=== PATIENT | female | born 1950 | race Caucasian/White ===

== ENCOUNTER 2020-08-26 13:47 | Outpatient (REF) | payer MEDICARE, BC, SELFPAY ==
[2020-08-26 14:00] LABS: TSH (W/Ref FT4) 1.89 uIU/mL (0.36-3.74)
== END 2020-08-26 14:07 ==
LOC: NCHCN 13:47
PROVIDERS: PCP Nurse Practitioner Community Health; Visit Provider Nurse Practitioner Community Health
DX: L65.9 Nonscarring hair loss, unspecified (principal)
CPT/HCPCS: 84443

== ENCOUNTER 2022-11-10 13:19 | Outpatient (REF) | payer MEDICARE, BC, SELFPAY ==
[2022-11-10 14:46] LABS: HCT 42.2 % (36.0-46.0); HGB 14.2 g/dL (11.2-15.7); MCH 31.7 pg (27.0-33.0); MCHC 33.6 % (32.0-36.0); MCV 94 fL (80-95); MPV 10.9 fL (8.0-11.0); Platelet Count 352 10^3/uL (130-400); RBC 4.48 10^6/uL (3.93-5.22); RDW 12.7 % (11.7-14.6); RDW-SD 44.3 fL; WBC 6.13 10^3/uL (4.4-10.8)
[2022-11-10 15:35] LABS: Calculated LDL 170 mg/dL (<100); Cholesterol 264 mg/dL (<200); HDL Cholesterol 46 mg/dL (40-60); Triglyceride 241 mg/dL (<150); Vitamin B12 954 pg/mL (193-986)
[2022-11-10 17:40] LABS: Vitamin D 25 Total 61.9 ng/mL (30-100)
== END 2022-11-10 13:20 | disposition home or self-care (01) ==
LOC: NCHCN 13:19
PROVIDERS: PCP Nurse Practitioner Community Health; Visit Provider Internal Medicine
DX: Z13.6 Encounter for screening for cardiovascular disorders (principal); M81.0 Age-related osteoporosis without current pathological fracture; D75.89 Other specified diseases of blood and blood-forming organs; M19.90 Unspecified osteoarthritis, unspecified site
CPT/HCPCS: 80061; 82306; 85027; 82607

== ENCOUNTER 2022-11-16 15:16 | Outpatient (REF) | payer MEDICARE, BC, SELFPAY ==
--- OUTSIDE RECORDS SUMMARY | 2022-11-16 15:22 | XMS_ITS | CCD ---
Author Name Unknown Address [address] [place] [address] [phone] Organization Unknown Address [address] [place] [address] [phone] Care Team Providers Care Assistant Health Educator Name Role Phone UNLISTED REQUESTED, PROVIDER - Attending Physici an 0 Vital Signs Unknown or Not Available. Allergies Allergy Code Allergy Type Reaction Status MORPHINE 7052 Drug allergy Vomiting Active OPIOID 0 Drug allergy Nausea; Vomiting Active GLUTEN 0 Food allergy Active DEMEROL 681041 Drug allergy Nausea; Vomiting Active WHEAT 0 Food allergy Active NICKEL 4850284 Drug allergy TUMOR Active COUMADIN 299713 Drug allergy Hives; SEVERE Active Procedures Unknown or Not Available. History of Immunizations Unknown or Not Available. Problems Unknown or Not Available. Results Unknown or Not Available. Active Medications Unknown or Not Available. Medications Administered During Visit Unknown or Not Available. Encounters Encounter Diagnosis Diagnosis Code Start Date Intervertebral disc disorder s with radiculopathy, lumbar region M5116 02/23/2022 Social History Smoking Status Code Start Date End Date Never smoker [id number] Patient Decision Aids Unknown or Not Available. Discharge Instructions You were admitted to [facility] on 02/23/2022 11:09 with a principal diagnosis of Intervertebral disc disorders with radiculopathy, lumbar region You were discharged from [facility] on 02/23/2022 11:09 Should you have any questions prior to discharge, please contact a member of your healthcare team. If you have left the hospital and have any questions, please contact your primary care physician. Chief Complaint and Reason For Visit Chief Complaint Date of Onset LBP, RT HIP PAIN Function Status Unknown or Not Available. Plan of Care Unknown or Not Available. Referral/Transition of Care Unknown or Not Available.
--- OUTSIDE RECORDS SUMMARY | 2022-11-16 15:22 | XMS_ITS | CCD ---
Author Name Unknown Address [address] [place] [address] [phone] Organization Unknown Address [address] [place] [address] [phone] Care Team Providers Care Timber Surveyor Name Role Phone MIMA KNOTT Attending Physician [phone] Vital Signs Unknown or Not Available. Allergies Allergy Code Allergy Type Reaction Status MORPHINE 7052 Drug allergy Vomiting Active OPIOID 0 Drug allergy Nausea; Vomiting Active GLUTEN 0 Food allergy Active DEMEROL 470284 Drug allergy Nausea; Vomiting Active WHEAT 0 Food allergy Active NICKEL 3723271 Drug allergy TUMOR Active COUMADIN 952620 Drug allergy Hives; SEVERE Active Procedures Unknown or Not Available. History of Immunizations Unknown or Not Available. Problems Unknown or Not Available. Results C REACTIVE PROTEIN HIGH SENS ITIVITY* - Collect Date/Time: 03/04/2022 12:27 Test Name Code Test Result Test Units Test Ref Rang e CRP-HIGH SENS. 98378-1 0.88 mg/L L=0.00 H=3 .00 CRP-HIGH SENS 15311-4 0.09 mg/dL L=0.00 H=0. 30 CBC W/ DIFFERENTIAL* - Colle ct Date/Time: 03/04/2022 12:27 Test Name Code Test Result Test Units Test Ref Rang e WBC 6690-2 5.66 th/cmm L=5.00 H=10.00 NEUT % 69.5 % L=40.0 H=80.0 LYMPH % 22.1 % L=10.0 H=50.0 MONO % 91289-7 6.0 % L=2.0 H=12.0 EOS % 1.1 % L=0.0 H=8.0 BASO % 1.1 % L=0.0 H=3.0 IG % 2514-8 0.2 % L=0.0 H=1.1 NRBC % 51555-6 0.0 % L=0.0 H=0.0 NEUT abs count 751-8 3.9 th/cmm L=1.6 H=8. 4 LYMPH abs count 731-0 1.3 th/cmm L=1.5 H=4 .0 MONO abs count 742-7 0.3 th/cmm L=0.2 H=1. 0 EOS abs count 711-2 0.1 th/cmm L=0.0 H=0.5 BASO abs count 704-7 0.1 th/cmm L=0.0 H=0. 2 IG abs count 87901-6 0.0 th/cmm L=0.0 H=0.1 NRBC abs count 57635-4 0.0 mil/cmm L=0.0 H=0. 0 RBC 789-8 4.50 mil/cmm L=3.90 H=5.40 HEMOGLOBIN 718-7 14.2 gm/dL L=12.0 H=16.0 HEMATOCRIT 4544-3 43 % L=37 H=47 MCV 787-2 96 fL L=82 H=92 MCH 785-6 31.6 pg L=27.0 H=31.0 MCHC 786-4 32.8 % L=32.0 H=36.0 RDW-SD 788-0 45.6 fL L=39.0 H=49.0 PLATELET COUNT 777-3 240 th/cmm L=150 H=45 0 SED RATE* - Collect Date/Rodo e: 03/04/2022 12:27 Test Name Code Test Result Test Units Test Ref Rang e SED. RATE 4537-7 17 mm/hr L=0 H=30 Active Medications Unknown or Not Available. Medications Administered During Visit Unknown or Not Available. Encounters Encounter Diagnosis Diagnosis Code Start Date Hip joint prosthesis present [id number] 09/2021 Social History Smoking Status Code Start Date End Date Never smoker [id number] Patient Decision Aids Unknown or Not Available. Discharge Instructions You were admitted to [facility] on 03/04/2022 11:54 with a principal diagnosis of Presence of left artificial hip joint You had the following tests done:C REACTIVE PROTEIN HIGH SENSITIVITY*CBC W/ DIFFERENTIAL*SED RATE* You were discharged from [facility] on 03/04/2022 11:54 Should you have any questions prior to discharge, please contact a member of your healthcare team. If you have left the hospital and have any questions, please contact your primary care physician. Chief Complaint and Reason For Visit Unknown or Not Available. Function Status Unknown or Not Available. Plan of Care Unknown or Not Available. Referral/Transition of Care Unknown or Not Available.
--- OUTSIDE RECORDS SUMMARY | 2022-11-16 15:22 | XMS_ITS | CCD ---
Author Name Unknown Address [address] [place] [address] [phone] Organization Unknown Address [address] [place] [address] [phone] Care Team Providers Care Nurse'S Aides Teacher Name Role Phone DANGELO JUANCHO Attending Physician [phone] Vital Signs Unknown or Not Available. Allergies Allergy Code Allergy Type Reaction Status MORPHINE 7052 Drug allergy Vomiting Active OPIOID 0 Drug allergy Nausea; Vomiting Active GLUTEN 0 Food allergy Active DEMEROL 659924 Drug allergy Nausea; Vomiting Active WHEAT 0 Food allergy Active NICKEL 2874541 Drug allergy TUMOR Active COUMADIN 629748 Drug allergy Hives; SEVERE Active Procedures Unknown or Not Available. History of Immunizations Unknown or Not Available. Problems Unknown or Not Available. Results CALCIUM URINE QUANT - Collec t Date/Time: 09/10/2021 08:00 Test Name Code Test Result Test Units Test Ref Rang e CALCIUM CONC. URINE 10 mg/dL TOTAL VOLUME 2025.0 mL HOURS COLLECTED 24 hours CALCIUM URINE 93717-5 203 mg/24 hr L=50 H=400 COLLECTION- TIMED N/A SARAH. STARTED 09/11/21 N/A CREATININE URINE 24 HOUR* - Collect Date/Time: 09/10/2021 08:00 Test Name Code Test Result Test Units Test Ref Rang e CREAT. CONC. URINE 29.5 mg/dL TOTAL VOLUME 2025.0 mL HOURS COLLECTED 24 hours CREATININE URINE 34887-0 0.60 gm/24 hr L=1.00 H =2.00 COLLECTION-- TIMED N/A SARAH. STARTED 09/11/21 N/A Active Medications Unknown or Not Available. Medications Administered During Visit Unknown or Not Available. Encounters Encounter Diagnosis Diagnosis Code Start Date Senile osteoporosis [id number] 09/12/2021 Social History Smoking Status Code Start Date End Date Never smoker [id number] Patient Decision Aids Unknown or Not Available. Discharge Instructions You were admitted to [facility] on 09/12/2021 13:19 with a principal diagnosis of Age-related osteoporosis without current pathological fracture You had the following tests done:CALCIUM URINE QUANTCREATININE URINE 24 HOUR* You were discharged from [facility] on 09/12/2021 13:19 Should you have any questions prior to [...]
--- OUTSIDE RECORDS SUMMARY | 2022-11-16 15:22 | XMS_ITS | CCD ---
Author Name Unknown Address [address] [place] [address] [phone] Organization Unknown Address [address] [place], [place] [phone] Care Team Providers Care Customer Associate Name Role Phone SHELBIJUANCHO ARMENDARIZ Attending Physician [phone] Vital Signs Unknown or Not Available. Allergies Allergy Code Allergy Type Reaction Status MORPHINE 7052 Drug allergy Vomiting Active OPIOID 0 Drug allergy Nausea; Vomiting Active GLUTEN 0 Food allergy Active DEMEROL 900884 Drug allergy Nausea; Vomiting Active WHEAT 0 Food allergy Active NICKEL 1193585 Drug allergy TUMOR Active COUMADIN 056518 Drug allergy Hives; SEVERE Active Procedures Unknown or Not Available. History of Immunizations Unknown or Not Available. Problems Unknown or Not Available. Results BASIC METABOLIC PANEL (BMP) - Collect Date/Time: 07/16/2021 10:33 Test Name Code Test Result Test Units Test Ref Rang e GLUCOSE 2345-7 96 mg/dL L=70 H=116 BUN 3094-0 16 mg/dL L=6 H=25 CREATININE 2160-0 0.68 mg/dL L=0.51 H=0.95 SODIUM SERUM 2951-2 137 mmol/L L=136 H=145 POTASSIUM SERUM 2823-3 4.2 mmol/L L=3.4 H=5 .2 CHLORIDE SERUM 2075-0 102 mmol/L L=96 H=110 CARBON DIOXIDE (CO2) 2028-9 31 mmol/L L=22 H=34 ANION GAP 26199-9 4.5 mmol/L CALCIUM SERUM 26748-9 9.5 mg/dL L=8.2 H=10. 2 AGE 70 years eGFR (non-Afr.Amer.) 62410-0 86 mL/min eGFR (Afr-Ivorian) 87512-9 104 mL/min Active Medications Unknown or Not Available. Medications Administered During Visit Unknown or Not Available. Encounters Encounter Diagnosis Diagnosis Code Start Date Senile osteoporosis [id number] 07/16/2021 Social History Smoking Status Code Start Date End Date Never smoker 440313324 Patient Decision Aids Unknown or Not Available. Discharge Instructions You were admitted to [facility] on 07/16/2021 10:13 with a principal diagnosis of Age-related osteoporosis without current pathological fracture You had the following tests done:BASIC METABOLIC PANEL (BMP) You were discharged from [facility] on 07/16/2021 10:13 Should you have any questions prior to [...]
--- OUTSIDE RECORDS SUMMARY | 2022-11-16 15:23 | XMS_ITS | CCD ---
Author Name Unknown Address [address] [place] [address] [phone] Organization Unknown Address [address] [place], [place] [phone] Care Team Providers Care Cafeteria Team Leader Name Role Phone JEFFREY HARLEY Erwin Attending Physician [phone] Vital Signs Unknown or Not Available. Allergies Allergy Code Allergy Type Reaction Status MORPHINE 7052 Drug allergy Vomiting Active OPIOID 0 Drug allergy Nausea; Vomiting Active GLUTEN 0 Food allergy Active DEMEROL 680891 Drug allergy Nausea; Vomiting Active WHEAT 0 Food allergy Active NICKEL 1282630 Drug allergy TUMOR Active COUMADIN 663220 Drug allergy Hives; SEVERE Active Procedures Unknown or Not Available. History of Immunizations Unknown or Not Available. Problems Unknown or Not Available. Results Unknown or Not Available. Active Medications Unknown or Not Available. Medications Administered During Visit Medication Dose Units Frequency Route Date/Time of Last Dose ZOLEDRONIC ACID IVPB: 5MG/100ML 5 MG X1 IVPB 10/20/2022 14:34 ACETAMINOPHEN TABLET: 325MG 650 MG X1 PO 10/20/2022 14:39 Encounters Encounter Diagnosis Diagnosis Code Start Date Age-related osteoporosis wit hout current pathological fracture M810 10/20/2022 Social History Smoking Status Code Start Date End Date Never smoker 646101037 Patient Decision Aids Unknown or Not Available. Discharge Instructions You were admitted to [facility] on 10/20/2022 12:52 with a principal diagnosis of Age-related osteoporosis without current pathological fracture You were discharged from [facility] on 10/20/2022 13:10 Should you have any questions prior to [...]
--- OUTSIDE RECORDS SUMMARY | 2022-11-16 15:23 | XMS_ITS | CCD ---
Author Name Unknown Address [address] [place] [address] [phone] Organization Unknown Address [address] [place], [place] [phone] Care Team Providers Care Systems Technologist Name Role Phone HERMINIO STOREY Attending Physician [phone] BELLA SARAH Er Physician [phone] LILLIE Howe Registered Nurse [phone] Vital Signs Vital Sign Value Unit Date/Time Recent/Initial ? BMI (Body Mass Index) 26.13 kg/m^2 07/02/2022 12: 47 Initial VS Weight Measured 133.82 lbs 07/02/2022 12:47 Ini tial VS Height 60 in 07/02/2022 12:47 Initial VS BSA (Body Surface Area) 1.6 m^2 07/02/2022 1 2:47 Initial VS BP Systolic 146 mmHg 07/02/2022 12:47 Initial VS BP Diastolic 80 mmHg 07/02/2022 12:47 Initia l VS Respiratory Rate 16 bpm 07/02/2022 12:47 In itial VS Heart Rate 99 bpm 07/02/2022 12:47 Initial VS O2 % BldC Oximetry 97 % 07/02/2022 12:47 Initial VS Body Temperature 36.4 degrees 07/02/2022 12:47 In itial VS Allergies Allergy Code Allergy Type Reaction Status MORPHINE 7052 Drug allergy Vomiting Active OPIOID 0 Drug allergy Nausea; Vomiting Active GLUTEN 0 Food allergy Active DEMEROL 775255 Drug allergy Nausea; Vomiting Active WHEAT 0 Food allergy Active NICKEL 6417936 Drug allergy TUMOR Active COUMADIN 20230902 Drug allergy Hives; SEVERE Active Procedures Unknown or Not Available. History of Immunizations Unknown or Not Available. Problems Unknown or Not Available. Results Unknown or Not Available. Active Medications Unknown or Not Available. Medications Administered During Visit Unknown or Not Available. Encounters Encounter Diagnosis Diagnosis Code Start Date Pain in left shoulder Q21073 07/02/2022 Social History Smoking Status Code Start Date End Date Never smoker 028054767 Patient Decision Aids Unknown or Not Available. Discharge Instructions You were admitted to [facility] on 07/02/2022 12:32 with a principal diagnosis of Pain in left shoulder You were discharged from [facility] on 07/02/2022 15:02 Should you have any questions prior to discharge, please contact a member of your healthcare team. If you have left the hospital and have any questions, please contact your primary care physician. Chief Complaint and Reason For Visit Chief Complaint Date of Onset LEFT SHOULDER PAIN 07/02/2022 Function Status Unknown or Not Available. Plan of Care Unknown or Not Available. Referral/Transition of Care Unknown or Not Available.
--- OUTSIDE RECORDS SUMMARY | 2022-11-16 15:23 | XMS_ITS | CCD ---
Author Name Unknown Address [address] [place] [address] [phone] Organization Unknown Address [address] [place], [place] [phone] Care Team Providers Care Loan Auditor Name Role Phone KATHITONIRASHMI DORSEY Attending Physician [phone] SHERRI SOing (Secondary) Physici an null Vital Signs Unknown or Not Available. Allergies Allergy Code Allergy Type Reaction Status MORPHINE 7052 Drug allergy Vomiting Active OPIOID 0 Drug allergy Nausea; Vomiting Active GLUTEN 0 Food allergy Active DEMEROL 130090 Drug allergy Nausea; Vomiting Active WHEAT 0 Food allergy Active NICKEL 6053881 Drug allergy TUMOR Active COUMADIN 494430 Drug allergy Hives; SEVERE Active Procedures Unknown or Not Available. History of Immunizations Unknown or Not Available. Problems Unknown or Not Available. Results Unknown or Not Available. Active Medications Unknown or Not Available. Medications Administered During Visit Unknown or Not Available. Encounters Encounter Diagnosis Diagnosis Code Start Date Other forms of scoliosis, lumbar region M4186 05/28/2022 Social History Smoking Status Code Start Date End Date Never smoker 043586249 Patient Decision Aids Unknown or Not Available. Discharge Instructions You were admitted to [facility] on 05/28/2022 12:30 with a principal diagnosis of Other forms of scoliosis, lumbar region You were discharged from [facility] Should you have any questions prior to [...]
--- OUTSIDE RECORDS SUMMARY | 2022-11-16 15:23 | XMS_ITS | CCD ---
Author Name Unknown Address [address] [place] [address] [phone] Organization Unknown Address [address] [place] [address] [phone] Care Team Providers Care Restaurant Line Server Name Role Phone ARTEMIO WICK Attending Physician [phone] Vital Signs Unknown or Not Available. Allergies Allergy Code Allergy Type Reaction Status MORPHINE 7052 Drug allergy Vomiting Active OPIOID 0 Drug allergy Nausea; Vomiting Active GLUTEN 0 Food allergy Active DEMEROL 401021 Drug allergy Nausea; Vomiting Active WHEAT 0 Food allergy Active NICKEL 5209788 Drug allergy TUMOR Active COUMADIN 210208 Drug allergy Hives; SEVERE Active Procedures Unknown or Not Available. History of Immunizations Unknown or Not Available. Problems Unknown or Not Available. Results Unknown or Not Available. Active Medications Unknown or Not Available. Medications Administered During Visit Unknown or Not Available. Encounters Unknown or Not Available. Social History Smoking Status Code Start Date End Date Never smoker [id number] Patient Decision Aids Unknown or Not Available. Discharge Instructions You were admitted to [facility] on 08/18/2022 09:23 You were discharged from [facility] on 08/18/2022 09:23 Should you have any questions prior to [...]
--- OUTSIDE RECORDS SUMMARY | 2022-11-16 15:23 | XMS_ITS | CCD ---
Author Name Unknown Address [address] [place] [address] [phone] Organization Unknown Address [address] [place] [address] [phone] Care Team Providers Care Manufacturing Scheduler Name Role Phone JOSÉ MIGUEL DUVALL Attending Physician [phone] JOSÉ MIGUEL DUVALL Rounding (Secondary) Physician [phone] Vital Signs Unknown or Not Available. Allergies Allergy Code Allergy Type Reaction Status MORPHINE 7052 Drug allergy Vomiting Active OPIOID 0 Drug allergy Nausea; Vomiting Active GLUTEN 0 Food allergy Active DEMEROL 671574 Drug allergy Nausea; Vomiting Active WHEAT 0 Food allergy Active NICKEL 7760126 Drug allergy TUMOR Active COUMADIN 197475 Drug allergy Hives; SEVERE Active Procedures Unknown or Not Available. History of Immunizations Unknown or Not Available. Problems Unknown or Not Available. Results Unknown or Not Available. Active Medications Unknown or Not Available. Medications Administered During Visit Unknown or Not Available. Encounters Encounter Diagnosis Diagnosis Code Start Date Strain of muscle of long head of biceps brachii [id number] 07/08/2022 Social History Smoking Status Code Start Date End Date Never smoker 820015639 Patient Decision Aids Unknown or Not Available. Discharge Instructions You were admitted to [facility] on 07/08/2022 12:00 with a principal diagnosis of Strain of muscle, fascia and tendon of long head of biceps, left arm, initial encounter You were discharged from [facility] on 07/08/2022 00:00 Should you have any questions prior to [...]
--- OUTSIDE RECORDS SUMMARY | 2022-11-16 15:23 | XMS_ITS | CCD ---
Author Name Unknown Address [address] [place] [address] [phone] Organization Unknown Address [address] [place] [address] [phone] Care Team Providers Care Logistics Lead Name Role Phone JEFFREY HARLEY Erwin Attending Physician [phone] Vital Signs Unknown or Not Available. Allergies Allergy Code Allergy Type Reaction Status MORPHINE 7052 Drug allergy Vomiting Active OPIOID 0 Drug allergy Nausea; Vomiting Active GLUTEN 0 Food allergy Active DEMEROL 478874 Drug allergy Nausea; Vomiting Active WHEAT 0 Food allergy Active NICKEL 0623508 Drug allergy TUMOR Active COUMADIN 408826 Drug allergy Hives; SEVERE Active Procedures Unknown or Not Available. History of Immunizations Unknown or Not Available. Problems Unknown or Not Available. Results COMPREHENSIVE METABOLIC PANE L (CMP) - Collect Date/Time: 10/20/2022 13:25 Test Name Code Test Result Test Units Test Ref Rang e GLUCOSE 2345-7 93 mg/dL L=70 H=116 BUN 3094-0 24 mg/dL L=6 H=25 CREATININE 2160-0 0.61 mg/dL L=0.51 H=0.95 SODIUM SERUM 2951-2 140 mmol/L L=136 H=145 POTASSIUM SERUM 2823-3 4.0 mmol/L L=3.4 H=5 .2 CHLORIDE SERUM 2075-0 104 mmol/L L=96 H=110 CARBON DIOXIDE (CO2) 2028-9 29 mmol/L L=22 H=34 ANION GAP 67024-3 7.3 mmol/L CALCIUM SERUM 47891-5 9.4 mg/dL L=8.2 H=10. 2 BILIRUBIN TOTAL 1975-2 0.7 mg/dL L=0.0 H=1 .3 ALK. PHOS. 6768-6 118 U/L L=46 H=116 SGOT (AST) 1920-8 19 U/L L=15 H=37 SGPT (ALT) 1742-6 22 U/L L=12 H=78 TOTAL PROTEIN 2885-2 7.3 gm/dL L=6.0 H=8.0 ALBUMIN 1751-7 3.6 gm/dL L=3.4 H=5.0 AGE 72 years eGFR (non-Afr.Amer.) 28315-0 97 mL/min eGFR (Afr-Monegasque) 07881-0 117 mL/min Active Medications Unknown or Not Available. Medications Administered During Visit Unknown or Not Available. Encounters Encounter Diagnosis Diagnosis Code Start Date Age-related osteoporosis wit hout current pathological fracture M810 10/20/2022 Social History Smoking Status Code Start Date End Date Never smoker 388806995 Patient Decision Aids Unknown or Not Available. Discharge Instructions You were admitted to [facility] on 10/20/2022 20:14 with a principal diagnosis of Age-related osteoporosis without current pathological fracture You had the following tests done:COMPREHENSIVE METABOLIC PANEL (CMP) You were discharged from [facility] on 10/20/2022 20:14 Should you have any questions prior to [...]
--- OUTSIDE RECORDS SUMMARY | 2022-11-16 15:23 | XMS_ITS | CCD ---
Author Name Unknown Address [address] [place] [address] [phone] Organization Unknown Address [address] [place] [address] [phone] Care Team Providers Care Disassembler Name Role Phone ARABELLA BREWSTER, ARBEN MULLINS, Attending Physician [phone] Vital Signs Unknown or Not Available. Allergies Allergy Code Allergy Type Reaction Status MORPHINE 7052 Drug allergy Vomiting Active OPIOID 0 Drug allergy Nausea; Vomiting Active GLUTEN 0 Food allergy Active DEMEROL 629766 Drug allergy Nausea; Vomiting Active WHEAT 0 Food allergy Active NICKEL 4177918 Drug allergy TUMOR Active COUMADIN 385226 Drug allergy Hives; SEVERE Active Procedures Unknown or Not Available. History of Immunizations Unknown or Not Available. Problems Unknown or Not Available. Results Unknown or Not Available. Active Medications Unknown or Not Available. Medications Administered During Visit Unknown or Not Available. Encounters Encounter Diagnosis Diagnosis Code Start Date Aftercare following joint replacement surgery Z4 71 04/16/2021 Social History Smoking Status Code Start Date End Date Never smoker [id number] Patient Decision Aids Unknown or Not Available. Discharge Instructions You were admitted to [facility] on 04/16/2021 08:42 with a principal diagnosis of Aftercare following joint replacement surgery You were discharged from [facility] on 04/30/2021 14:03 Should you have any questions prior to [...]
--- OUTSIDE RECORDS SUMMARY | 2022-11-16 15:23 | XMS_ITS | CCD ---
Author Name Unknown Address [address] [place] [address] [phone] Organization Unknown Address [address] [place] [address] [phone] Care Team Providers Care Big Data Platform Architect Name Role Phone MIMA KNOTT Attending Physician [phone] Vital Signs Unknown or Not Available. Allergies Allergy Code Allergy Type Reaction Status MORPHINE 7052 Drug allergy Vomiting Active OPIOID 0 Drug allergy Nausea; Vomiting Active GLUTEN 0 Food allergy Active DEMEROL 025121 Drug allergy Nausea; Vomiting Active WHEAT 0 Food allergy Active NICKEL 4888377 Drug allergy TUMOR Active COUMADIN 928633 Drug allergy Hives; SEVERE Active Procedures Unknown or Not Available. History of Immunizations Unknown or Not Available. Problems Unknown or Not Available. Results Unknown or Not Available. Active Medications Unknown or Not Available. Medications Administered During Visit Unknown or Not Available. Encounters Encounter Diagnosis Diagnosis Code Start Date Spinal stenosis, lumbar phuc on without neurogenic claudication [id number] 03/11/2022 Social History Smoking Status Code Start Date End Date Never smoker [id number] Patient Decision Aids Unknown or Not Available. Discharge Instructions You were admitted to [facility] on 03/11/2022 10:44 with a principal diagnosis of Spinal stenosis, lumbar region without neurogenic claudication You were discharged from [facility] on 03/11/2022 10:44 Should you have any questions prior to discharge, please contact a member of your healthcare team. If you have left the hospital and have any questions, please contact your primary care physician. Chief Complaint and Reason For Visit Chief Complaint Date of Onset LBP, RADICULOPATHY Function Status Unknown or Not Available. Plan of Care Unknown or Not Available. Referral/Transition of Care Unknown or Not Available.
[2022-11-16 22:28] LABS: TSH (W/Ref FT4) 2.49 uIU/mL (0.36-3.74)
[2022-11-19 14:22] LABS: IgA 289 mg/dL (85-499); Interpretation (See Note); Tissue Transglutaminase IgA <1.2 U/mL (<4.0)
== END 2022-11-16 15:17 | disposition home or self-care (01) ==
LOC: NCHCN 15:16
PROVIDERS: PCP Nurse Practitioner Community Health; Visit Provider Internal Medicine
DX: R19.4 Change in bowel habit (principal)
CPT/HCPCS: 82784; 83516; 84443

== ENCOUNTER 2023-05-19 14:56 | Outpatient (REF) | payer MEDICARE, BC, SELFPAY ==
[2023-05-19 14:45] LABS: Calculated LDL 162 mg/dL (<100); Cholesterol 239 mg/dL (<200); HDL Cholesterol 53 mg/dL (40-60); Triglyceride 122 mg/dL (<150)
== END 2023-05-19 14:57 | disposition home or self-care (01) ==
LOC: NCHCN 14:56
PROVIDERS: PCP Nurse Practitioner Community Health; Visit Provider Internal Medicine
DX: E78.5 Hyperlipidemia, unspecified (principal)
CPT/HCPCS: 80061

== ENCOUNTER 2023-06-03 10:24 | Outpatient (CLI) | payer MEDICARE, BC, SELFPAY ==
[2023-06-03 10:48] VITALS: BP 117/64; PULSE 78; RESP 18; TEMP 37; O2SAT 98
--- NOTE | 2023-06-03 11:17 | PDOC.PAIN_ITS ---
Date of service: 06/03/23 Time of Service: 11:18 Pain Managment Procedure Note Procedure Note Procedure Note: PROCEDURE NOTE LUMBAR EPIDURAL STEROID INJECTION Date of Service: June 03, 2023 Patient:Petra Ordonez? Provider: Toro Hammond DO, MPH Petra Ashley has been referred to the [facility] for a lumbar epidural steroid injection. Pre-operative diagnosis: Lumbosacral Radiculopathy Post-operative diagnosis: Same Pre-Procedure Pain: VAS= 7/10 Comments: I previously evaluated her in the office and spoke to her at length on the phone. Petra was interviewed and the medical record was reviewed.? There were no medical, pharmacologic, radiographic or other structural contraindications to attempting fluoroscopically guided Lumbar epidural steroid injection.? Risks, potential side effects, indications, and potential benefits of the procedure were reviewed with Petra.? Questions and concerns were addressed.? After it was clear that Petra was fully informed about the procedure, the printed consent form was signed by the patient and myself.? Petra was placed in the prone position on the fluoroscopy table and automated blood pressure cuff and pulse oximeter applied. The skin entry point for entering/approaching the epidural space for the lumbar epidural steroid injection was marked. Following thorough chlorhexadine preparation of the skin and draping and 1% lidocaine infiltration of the skin entry point and subcutaneous tissues, an 18 gauge Touhy needle was placed and advanced under fluoroscopic guidance and with loss of resistance technique into the L5-S1 epidural space. Needle tip placement and depth were aided and confirmed by fluoroscopy. There was no paresthesia or return of blood or CSF through the needle. 1 mls of Omnipaque 240 was injected with clear epidural spread confirmed with fluoroscopy. 80 mg of Depo-Medrol was? injected. This was followed by 1 ml of preservative-free normal saline to flush the steroid out of the needle. There was no unusual discomfort expressed by Petra. The needle was withdrawn without difficulty. (49 mls of Omnipaque was wasted) Petra was observed and was without hemodynamic, neurologic, or allergic reactions.? Fluoroscopic images were digitally archived. Petra's vital signs were stable throughout the procedure and were as recorded in nursing records. Follow up plans and appointments were discussed with Petra. Post procedure instruction was given as documented in nursing records and having met discharge criteria Petra was discharged from the [facility]. COMMENTS: No apparent complications. Post-procedure pain: VAS= 5/10. Petra to contact [facility] as needed. If at least 50% improvement in pain and/or function for at least 3 months is achieved, this procedure can be repeated. I personally performed this entire procedure. TORO HAMMOND DO, MPH ABPMR-subspecialty board certification in Pain Medicine [facility]
[2023-06-03 11:19] VITALS: BP 142/88; PULSE 90; RESP 14; O2SAT 97
--- NOTE | 2023-06-03 11:19 | DI.RAD_ITS ---
Exam(s) XR PAIN CLINIC LUMBAR SP 2V EXAM: XR PAIN CLINIC LUMBAR SP 2V CLINICAL HISTORY: Dx: Lumbar Radiculopathy TECHNIQUE: 2D and realtime digital imaging was performed. CONTRAST MATERIAL: Refer to procedure report. COMPARISON: No exams were available for comparison FINDINGS: Fluoroscopy was provided for Dr. Hammond during the performance of a lumbar epidural steroid injection. Please refer to the procedure report for complete details. Ka,r=6.18 mGy IMPRESSION:
[2023-06-03] MEDS: Omnipaque 240 MG/ML 50 ML BTL IJ (11:31)
[2023-06-03] MEDS: methylPREDNISolone ACETATE 80 MG/ML VIAL IJ (11:32)
== END 2023-06-03 10:25 | disposition home or self-care (01) ==
LOC: PC 10:26
PROVIDERS: PCP Internal Medicine; Visit Provider Preventive Medicine Occupational Medicine
DX: M54.50 Low back pain, unspecified (principal); M54.17 Radiculopathy, lumbosacral region
CPT/HCPCS: 00123; 62323; 72100; J1040; Q9967

== ENCOUNTER 2023-11-22 14:49 | Outpatient (REF) | payer MEDICARE, BC, SELFPAY ==
[2023-11-22 15:13] LABS: Calculated LDL 170 mg/dL (<100); Cholesterol 246 mg/dL (<200); HDL Cholesterol 59 mg/dL (40-60); Triglyceride 89 mg/dL (<150)
== END 2023-11-22 14:50 | disposition home or self-care (01) ==
LOC: NCHCN 14:49
PROVIDERS: PCP Internal Medicine; Visit Provider Internal Medicine
DX: E78.5 Hyperlipidemia, unspecified (principal)
CPT/HCPCS: 80061

== ENCOUNTER 2024-05-23 16:24 | Outpatient (REF) | payer MEDICARE, BC, SELFPAY ==
[2024-05-23 15:47] LABS: Calculated LDL 130 mg/dL (<100); Cholesterol 210 mg/dL (<200); HDL Cholesterol 53 mg/dL (40-60); Triglyceride 135 mg/dL (<150)
== END 2024-05-23 16:25 | disposition home or self-care (01) ==
LOC: NCHCN 16:24
PROVIDERS: PCP Internal Medicine; Visit Provider Internal Medicine
DX: E78.5 Hyperlipidemia, unspecified (principal)
CPT/HCPCS: 80061

== ENCOUNTER 2025-05-31 09:50 | Outpatient (REF) | payer MEDICARE, BC, SELFPAY ==
[2025-05-31 16:16] LABS: Calculated LDL 150 mg/dL (<100); Cholesterol 223 mg/dL (<200); Glucose 97 mg/dL (74-106); HDL Cholesterol 56 mg/dL (>or=50); Triglyceride 89 mg/dL (<150)
== END 2025-05-31 09:51 | disposition home or self-care (01) ==
LOC: NCHCN 09:50
PROVIDERS: PCP Internal Medicine; Visit Provider Internal Medicine
DX: Z13.1 Encounter for screening for diabetes mellitus (principal); E78.5 Hyperlipidemia, unspecified
CPT/HCPCS: 80061; 82947